=== PATIENT | male | born 1995 | race Two or more races ===

== ENCOUNTER 2021-02-25 09:04 | Emergency (ER) | payer OTHER ==
[~2021-02-25] VITALS: Ht 170.2 cm; Wt 95.7 kg
[2021-02-25 10:11] VITALS: BP 112/90
== END 2021-02-25 10:15 | disposition home or self-care (01) ==
LOC: ED 10:09
DX: J06.9 Acute upper respiratory infection, unspecified (principal); Z20.822 Contact with and (suspected) exposure to COVID-19; R06.02 Shortness of breath
CPT/HCPCS: 93005; 99284; U0003; U0005